=== PATIENT | female | born 1995 | race Caucasian/White ===

== ENCOUNTER 2024-08-29 15:45 | Inpatient (IN) | payer OTHER ==
[2024-08-29 16:15] LABS: Glucose,Whole Blood 118 mg/dL (70-110)
[2024-08-29] MEDS ORDERED: NALBUPHINE 10 MG/ML (10 ML MDV) IV PRN (16:59)
[2024-08-29] MEDS ORDERED: CARBOPROST TROMETHAMINE 250 MCG/ML 1 ML AMP IM PRN (17:00)
[2024-08-29] MEDS ORDERED: miSOPROStoL 200 MCG TAB RECTAL PRN (17:00)
[2024-08-29] MEDS ORDERED: METHYLERGONOVINE 0.2 MG/ML 1 ML AMP IM PRN (17:00)
[2024-08-29] MEDS ORDERED: miSOPROStoL 200 MCG TAB PO PRN (17:00)
[2024-08-29] MEDS ORDERED: LIDOCAINE 0.5% (PF) 5 MG/ML (50 ML SDV) SQ PRN (17:00)
[2024-08-29] MEDS ORDERED: OXYTOCIN 10 UNIT/ML 1 ML VIAL IM PRN (17:00)
[2024-08-29] MEDS ORDERED: TERBUTALINE 1 MG/ML VIAL SQ PRN (17:00)
[2024-08-29] MEDS ORDERED: OXYTOCIN 30 UNITS/500 ML NS 30 UNIT in SALINE 1 500ML.BAG IV SCH (17:00)
[2024-08-29] MEDS ORDERED: TRANEXAMIC 1,000 MG/100ML-NACL 1,000 MG in EMPTY BAG 1 BAG IV PRN (17:00)
--- NOTE | 2024-08-29 17:09 | P.HPOB ---
History of Present Illness H&P Date: 08/29/24 Chief Complaint: IUP at 39 weeks, GDM A1 29-year-old 1 para 0 at 39 weeks of that presents for induction of labor secondary to gestational diabetes, diet-controlled. Patient has been receiving routine care which has been complicated by diagnosis of gestational diabetes which has been well-controlled with diet alone. Patient notes good movement. She notes an occasional contraction. She denies vaginal bleeding or loss of fluid US done at 35 weeks revealing an estimated weight of 5 pounds 13 ounces, 44th percentile. On blood work this patient has a blood type of A+, rubella status immune, RPR is nonreactive, hepatitis B surface engine negative, HIV negative, hepatitis C nonreactive, she did receive her Tdap on 07/14, grew beta strep culture negative on 08/10. Review of Systems Constitutional: Denies chills, Denies fatigue, Denies fever Ears, nose, mouth and throat: Denies headache Cardiovascular: Reports leg edema Respiratory: Denies dyspnea Gastrointestinal: Denies nausea, Denies vomiting Genitourinary: Reports Past Medical History Past Medical History: No Reported History History of Any Multi-Drug Resistant Organisms: None Reported Additional Past Surgical History / Comment(s): per pt, "Exploritory surg in 2022 r/t endometriosis". Past Anesthesia/Blood Transfusion Reactions: Postoperative Nausea & Vomiting (PONV) Past Psychological History: Anxiety, Depression Smoking Status: Never smoker Past Alcohol Use History: None Reported Past Drug Use History: None Reported - Past Family History Mother Family Medical History: Diabetes Mellitus Father Family Medical History: Diabetes Mellitus Medications and Allergies Home Medications Medication Instructions Recorded Confirmed Type Aspirin [Adult Low Dose Aspirin EC] 81 mg PO DAILY 08/29/24 08/29/24 History Escitalopram [Lexapro] 20 mg PO DAILY 08/29/24 08/29/24 History Pnv 11/Iron Fum/Folic Acid/Om3 1 each PO DAILY 08/29/24 08/29/24 History [Wesnate Dha Softgel] Allergies Allergy/AdvReac Type Severity Reaction Status Date / Time shrimp Allergy Rash/Hives Verified 08/29/24 16:22 Sulfa (Sulfonamide AdvReac Rash/Hives Verified 08/29/24 16:22 Antibiotics) Exam Osteopathic Statement: *. No significant issues noted on an osteopathic structural exam other than those noted in the History and Physical/Consult. Vital Signs Temp Pulse Resp BP Pulse Ox 08/29/24 16:21 95.6 F L 98 18 128/65 97 Intake and Output 08/29/24 08/29/24 08/29/24 06:59 14:59 22:59 Other: Weight 117.48 kg Targeted physical exam is performed this date General Is well-nourished well- developed female in no acute distress, breathing is noted to be nonlabored, heart has a regular and rhythm, abdomen is gravid, heart tones noted category 1 and she is not flores, Dilapan was attempted be placed but the head was noted to be well applied and unable to be placed appropriately therefore procedure was abandoned. Cervidil will be placed as her cervix is noted to be 2/50/-2 station vertex presentation Results Abnormal Lab Results - Last 24 Hours (Table) 08/29/24 Range/Units 16:14 POC Glucose (mg/dL) 118 H (70-110) mg/dL Assessment and Plan (1) 39 weeks gestation of Current Visit: Yes Status: Acute Code(s): Z3A.39 - 39 WEEKS GESTATION OF SNOMED Code(s): 44763164 (2) GDM, class A1 Current Visit: Yes Status: Acute Code(s): O24.410 - GESTATIONAL DIABETES MELLITUS IN , DIET CONTROLLED SNOMED Code(s): 27600435 Plan: 29-year-old G1, P0 at 39 weeks that presents for induction of labor secondary to gestational diabetes, diet-controlled. Patient is admitted to labor and delivery and Cervidil induction of labor has begun. Options for analgesia are discussed including Nubain, nitrous, epidural. Patient will consider.
[2024-08-29] MEDS: DINOPROSTONE 10 MG INSERT.ER VAGINAL ONE (17:16)
[2024-08-29] MEDS: LACTATED RINGERS 1,000 ML IV SCH (17:21)
[2024-08-29 17:37] LABS: Basophils % (A) 0 %; Eosinophils # (A) 0.1 k/uL (0-0.7); Eosinophils % (A) 1 %; HGB 11.6 gm/dL (11.4-16.0); Lymphocytes # (A) 1.8 k/uL (1.0-4.8); Lymphocytes % (A) 17 %; MCH 26.1 pg (25.0-35.0); MCHC 33.2 g/dL (31.0-37.0); MCV 78.6 fL (80.0-100.0); Monocytes # (A) 0.6 k/uL (0-1.0); Monocytes % (A) 5 %; Neutrophils # (A) 8.5 k/uL (1.3-7.7); Neutrophils % (A) 77 %; Platelet Count 482 k/uL (150-450); RBC 4.46 m/uL (3.80-5.40); RDW 14.5 % (11.5-15.5); WBC 11.2 k/uL (3.8-10.6)
[2024-08-30] MEDS: OXYTOCIN 30 UNITS/500 ML NS 30 UNIT in SALINE 1 500ML.BAG IV SCH (06:01)
[2024-08-30] MEDS: ESCITALOPRAM 20 MG TAB PO SCH (13:55)
[2024-08-30] MEDS: PRENATAL VIT-IRON-FOLIC ACID 1 EACH TABLET PO SCH (13:56)
[2024-08-31] MEDS: AMPICILLIN 2,000 MG in SODIUM CHLORIDE 0.9% 100 ML IVPB ONE (00:09)
[2024-08-31] MEDS ORDERED: CARBOPROST TROMETHAMINE 250 MCG/ML 1 ML AMP IM PRN (02:26)
[2024-08-31] MEDS ORDERED: METHYLERGONOVINE 0.2 MG/ML 1 ML AMP IM PRN (02:26)
[2024-08-31] MEDS ORDERED: OXYTOCIN 10 UNIT/ML 1 ML VIAL IM PRN (02:26)
[2024-08-31] MEDS ORDERED: TRANEXAMIC 1,000 MG/100ML-NACL 1,000 MG in EMPTY BAG 1 BAG IV PRN (02:26)
[2024-08-31] MEDS: CITRIC ACID-SODIUM CITRATE 15 ML CUP PO ONE (02:48)
[2024-08-31] MEDS ORDERED: METOCLOPRAMIDE 5 MG/ML 2 ML VIAL IVP PRN (04:11)
[2024-08-31] MEDS ORDERED: diphenhydrAMINE 25 MG CAP PO PRN (04:11)
[2024-08-31] MEDS ORDERED: ZOLPIDEM 5 MG TAB PO PRN (04:11)
[2024-08-31] MEDS ORDERED: SIMETHICONE 80 MG CHEWABLE PO PRN (04:11)
[2024-08-31] MEDS ORDERED: NALOXONE 0.4 MG/ML 1 ML VIAL IV PRN (04:11)
[2024-08-31] MEDS ORDERED: ONDANSETRON 4 MG/2 ML VIAL IVP PRN (04:11)
[2024-08-31] MEDS ORDERED: diphenhydrAMINE 50 MG/ML 1 ML VIAL IVP PRN ×2 (04:11)
[2024-08-31] MEDS ORDERED: diphenhydrAMINE 50 MG CAP PO PRN (04:11)
[2024-08-31] MEDS: ACETAMINOPHEN IV (For NPO) 1,000 MG in EMPTY BAG 1 BAG IVPB ONE (04:20)
[2024-08-31] MEDS: AMPICILLIN 1,000 MG in SODIUM CHLORIDE 0.9% 50 ML IVPB SCH (04:23)
[2024-08-31] MEDS: IBUPROFEN 800 MG TAB PO SCH (06:56)
[2024-08-31] MEDS: LACTATED RINGERS 1,000 ML IV SCH (06:56)
[2024-08-31] MEDS: IBUPROFEN IV 800 MG in SODIUM CHLORIDE 0.9% 250 ML IV ONE (08:33)
[2024-08-31] MEDS: SENNOSIDES-DOCUSATE SODIUM 1 EACH TAB PO SCH (08:51)
--- NOTE | 2024-08-31 08:52 | P.OP ---
Date of Procedure: 08/31/24 Preoperative Diagnosis: IUP at 39+ weeks, arrest of dilation, gestational diabetes A1 Postoperative Diagnosis: Same Procedure(s) Performed: MRI low-transverse section Anesthesia: epidural Surgeon: Callie Vincent [employer] Supervisor #1: Ismael Vance Estimated Blood Loss (ml): 635 IV fluids (ml): 1,500 Urine output (ml): 100 Pathology: none sent Condition: stable Disposition: observation Indications for Procedure: arrest of dilation for >8 hours Operative Findings: viable male infant delivered at 312, weight 7-11, apgars Description of Procedure: The patient was prepped and draped after epidural anesthesia was found to be adequate. A Pfannenstiel incision was made and extended of the abdominal cavity without difficulty. The bladder peritoneum was elevated and incised and reflected distally. A 2 cm incision was made in the transverse plane of the lower uterine segment to enter the uterus at which time clear fluid was noted. The incision was extended in both directions using the bandage scissors. The head was encountered within the field and delivered up and through the incision where the nose and mouth were thoroughly suctioned. Remainder of the was delivered onto the surgical field where the cord was doubly clamped, cut, and the infant was passed for resuscitative measures with weight and Apgars as noted above. The placenta was delivered manually, intact, and was grossly normal with a grossly normal three-vessel cord. The uterus was exteriorized and the interior cavity of the uterus swept of any remaining placental and membranous fragments with a laparotomy sponge. The margins of the incision were grasped with Lucas clamps and the incision closed in 2 layers. First layer was a running locking layer of 0 Vicryl from margin to margin followed by a second layer of imbricating 0 Vicryl from margin to margin. Any small points of bleeding were then made hemostatic with the Bovie. Once hemostasis was achieved, the posterior cul-de-sac was suctioned with a guard and the uterine and ovarian findings are as noted above. The uterus was replaced within the abdominal cavity and the gutters swept of any remaining blood fluid or clot. The incision was again reexamined and hemostasis was noted to be excellent. Any small point of bleeding were made hemostatic with the Bovie. Once hemostasis w as achieved the parietal peritoneum was loosely reapproximated. The layer of muscles were examined and made hemostatic with the Bovie. Attention was then turned to the fascia which was closed with 2 running stitches of 0 Vicryl proceeding from the lateral margins to the midpoint. The subcutaneous tissues were irrigated, made hemostatic with the Bovie, and reapproximated with a running stitch of 30 plain catgut. The skin was reapproximated with 4-0 Vicryl. Estimated blood loss for the case was approximately 635 mL. All sponge instrument and needle counts are correct. There were no complications. The patient tolerated the procedure well and proceeded to the recovery room in stable condition. Both mother and are resting comfortably in recovery.
[2024-08-31] MEDS: ACETAMINOPHEN TAB 500 MG TAB PO SCH (12:15)
--- NOTE | 2024-08-31 14:41 | P.PNOBGPC ---
Subjective - Subjective Principal diagnosis: Postop day 0, primary Interval history: Patient is doing well overall, awaiting spontaneous void, catheter removed around noon. Ambulating without difficulty. Tolerating regular diet without nausea or vomiting. States pain is well-controlled. Patient reports: Reports appetite normal, Reports pain well controlled, Reports ambulating normally [place]: doing well Objective - Vital Signs Latest vital signs: Vital Signs Temp Pulse Resp BP Pulse Ox 08/31/24 12:24 99.4 F 73 16 100/68 96 08/31/24 08:05 97.7 F 80 16 107/71 96 08/31/24 05:46 96.8 F L 73 16 94/51 08/31/24 05:31 96.6 F L 78 16 100/51 08/31/24 05:16 84 16 107/51 96 08/31/24 05:01 96.8 F L 89 16 99/52 94 L 08/31/24 04:46 97.5 F L 83 16 97/49 97 08/31/24 04:31 97.8 F 94 16 101/57 98 08/31/24 04:16 97.1 F L 97 16 115/71 99 08/31/24 04:01 96.9 F L 99 16 105/56 100 08/31/24 03:46 97.2 F L 89 16 111/55 100 Intake and Output 08/30/24 08/31/24 08/31/24 22:59 06:59 14:59 Intake Total 210.633 Output Total 1042 700 Balance -831.367 -700 Intake: Intake, IV Titration 210.633 Amount Oxytocin 30 Units/500 ml 210.633 Ns 30 unit In Saline 1 500ml.bag @ Per Protocol IV .Q0M [facility] Rx#:[id number] Output: Urine 200 700 Uretheral (Montes) 700 Output, Estimated Blood 635 Loss Amount Output, Quantitative 207 Blood Loss Other: Voiding Method Indwelling Catheter - Exam Extremities: Present: normal, edema Abdomen: Present: normal appearance, soft Incision: Present: normal, dry, intact Uterus: Present: normal, firm Assessment and Plan (1) 39 weeks gestation of Current Visit: Yes Status: Acute Code(s): Z3A.39 - 39 WEEKS GESTATION OF SNOMED Code(s): 52678108 (2) GDM, class A1 Current Visit: Yes Status: Acute Code(s): O24.410 - GESTATIONAL DIABETES MELLITUS IN , DIET CONTROLLED SNOMED Code(s): 58013114 (3) Arrest of dilation, delivered, current hospitalization Current Visit: Yes Status: Acute Code(s): O62.1 - SECONDARY UTERINE INERTIA SNOMED Code(s): 49571795 (4) Status post section Current Visit: Yes Status: Acute Code(s): Z98.891 - HISTORY OF UTERINE SCAR FROM PREVIOUS SURGERY SNOMED Code(s): 895729297 Plan: Patient is doing well postoperatively. Awaiting spontaneous void. Continue routine postoperative care.
[2024-08-31 15:17] VITALS: RESP 16
[2024-09-01 05:42] LABS: Basophils % (A) 0 %; Eosinophils # (A) 0.2 k/uL (0-0.7); Eosinophils % (A) 2 %; Hypochromasia Slight; Lymphocytes # (A) 2.8 k/uL (1.0-4.8); Lymphocytes % (A) 25 %; MCH 26.5 pg (25.0-35.0); MCHC 33.3 g/dL (31.0-37.0); MCV 79.6 fL (80.0-100.0); Mean Platelet Volume 7.3; Monocytes # (A) 0.6 k/uL (0-1.0); Monocytes % (A) 5 %; Neutrophils # (A) 7.3 k/uL (1.3-7.7); Neutrophils % (A) 66 %; Platelet Count 343 k/uL (150-450); RBC 3.26 m/uL (3.80-5.40); RDW 14.6 % (11.5-15.5); WBC 11.2 k/uL (3.8-10.6)
[2024-09-01 05:56] LABS: HGB 8.7 gm/dL (11.4-16.0)
--- NOTE | 2024-09-01 07:25 | P.PN ---
Progress Note - Text Progress Note Date: 09/01/24 (675) Anesthesia Postop day 1 Subjective: Status Post section with Duramorph. Patient seen and examined. Doing well without complaint. VAS 0. No nausea vomiting or pruritus.. Denies fever. Gross lower extremity strength intact. Without apparent anesthetic complications. Objective: Vital signs reviewed Heart: Regular Rate Lungs: Good chest excursion Abdomen: Appears nondistended Assessment: Status post section with Duramorph postop day 1 Plan: 1. Continue current care with your medical management. Anticipated need for extra pain pill as Duramorph action has ended. 2. This note was dictated using [email or web address] software. Please be advised there is a potential for misspellings or errors in registered nurse.
--- NOTE | 2024-09-01 10:15 | P.DS ---
Providers Date of admission: 08/29/24 15:45 Expected date of discharge: 09/01/24 Attending physician: Callie Vincent Primary care physician: [facility] - Discharge Diagnosis(es) (1) 39 weeks gestation of Current Visit: Yes Status: Acute (2) GDM, class A1 Current Visit: Yes Status: Acute (3) Arrest of dilation, delivered, current hospitalization Current Visit: Yes Status: Acute (4) Status post section Current Visit: Yes Status: Acute Hospital Course: This is a 29-year-old 1 now para 1 that presented to labor and delivery on 08/29 for Cervidil induction of labor. Patient been receiving routine care with myself which had been complicated by diagnosis of gestational diabetes that have been well-controlled with diet alone. Patient in addition has a history of factor V Leiden no personal history of blood clot and has been taking baby aspirin daily. Cervidil was placed without difficulty that evening. Patient did well through the evening with minimal cramping. Patient was noted to be 2+ centimeters in the morning amniotomy was performed and clear fluid was obtained. Patient made progress through the day slowly stalling at 4 to 5 cm in the transportation officer hours of 08/31. Patient was counseled on lack of progress and lack of descent of the head. Patient stated understanding and wished to proceed with primary low-transverse section. Patient was taken back to the operating suite where was performed without difficulty. Patient delivered a viable female infant at 313, weight of 7 pounds 11 ounces, Apgars of 7 and 8 at 1 and 5 minutes respectively. Patient has done well postoperatively. Patient is ambulating and voiding without difficulty. She is tolerating a regular diet without nausea or vomiting. States her pain is well-controlled. She denies concerns. She would like discharge home later today. Patient Condition at Discharge: Good Plan - Discharge Summary New Discharge Prescriptions: No Action Escitalopram [Lexapro] 20 mg PO DAILY Pnv 11/Iron Fum/Folic Acid/Om3 [Wesnate Dha Softgel] 1 each PO DAILY Aspirin [Adult Low Dose Aspirin EC] 81 mg PO DAILY Discharge Medication List Aspirin [Adult Low Dose Aspirin EC] 81 mg PO DAILY 08/29/24 [History] Escitalopram [Lexapro] 20 mg PO DAILY 08/29/24 [History] Pnv 11/Iron Fum/Folic Acid/Om3 [Wesnate Dha Softgel] 1 each PO DAILY 08/29/24 [History] Follow up Appointment(s)/Referral(s): Callie Vincent DO [Doctor of Osteopathic Medicine] - 10/11/24 2:15 pm (Post C/S Appointment 09-12-2024 at 10:30am) Patient Instructions/Handouts: (DC), (GEN) Activity/Diet/Wound Care/Special Instructions: No tub baths or intercourse until 6 weeks postoperatively. Steri-Strips may fall off in 7 to 10 days postoperatively, if they remain at her 2-week postop check I will remove them at that time. [id number] ibuprofen 600 mg or 3 tablets every 6 hours as needed for pain. No driving until her 2-week postop check. Discharge Disposition: HOME SELF-CARE
[2024-09-01 16:11] VITALS: BP 115/73; PULSE 72; TEMP 98
== END 2024-09-01 17:35 | disposition home or self-care (01) | DRG 787 ==
LOC: 4FBP 15:45
PROVIDERS: ADMIT Obstetrics & Gynecology Obstetrics; ATTEND Obstetrics & Gynecology Obstetrics
PROC: 10D00Z1 Extraction of Products of Conception, Low, Open Approach (ICD-10-PCS; principal; 2024-08-29)
PROC: 10907ZC Drainage of Amniotic Fluid, Therapeutic from Products of Conception, Via Natural or Artificial Opening (ICD-10-PCS; 2024-08-29)
PROC: 3E0P7VZ Introduction of Hormone into Female Reproductive, Via Natural or Artificial Opening (ICD-10-PCS; 2024-08-29)
DX: O24.420 Gestational diabetes mellitus in childbirth, diet controlled (principal); D68.51 Activated protein C resistance; O99.12 Other diseases of the blood and blood-forming organs and certain disorders involving the immune mechanism complicating childbirth; Z3A.39 39 weeks gestation of pregnancy; Z37.0 Single live birth; F32.A Depression, unspecified; F41.9 Anxiety disorder, unspecified; O62.0 Primary inadequate contractions; O99.344 Other mental disorders complicating childbirth; Z79.82 Long term (current) use of aspirin; Z79.899 Other long term (current) drug therapy; Z88.2 Allergy status to sulfonamides; Z91.013 Allergy to seafood
CPT/HCPCS: 85025; 86850; 86900; 86901

== ENCOUNTER 2024-12-22 03:37 | Emergency (ER) | payer OTHER ==
--- NOTE | 2024-12-22 04:44 | ED ---
General Adult HPI - General Chief complaint: Upper Respiratory Infection Stated complaint: BIJAL, cough Time Seen by Provider: 12/22/24 04:16 Source: patient Mode of arrival: ambulatory Limitations: no limitations - History of Present Illness Initial comments: Patient is a pleasant 29 y/o female PMH asthma, approx 3 mon post presenting today for cough and shortness of breath. Pt's son was diagnosed Thursday, about 4 days plane captain w/ influenza, which is when pt's symptoms started as well. Thursday she was diagnosed with influenza and prescribed tamiflu which she began taking last night. States since Thursday she has had progressively worsening dry cough and shortness of breath. Endorses fevers x 2-3 days for which she has been taking tylenol. Endorses chest tightness/ discomfort w/ deep breathing. Denies LE swelling, hemoptysis, recent surgeries, travel or hospitalizations. No hx prior PE/DVT or ACS. She is a nonsmoker. Does have a hx of Factor V leidem mutation. - Related Data Home Medications Medication Instructions Recorded Confirmed Aspirin [Adult Low Dose Aspirin EC] 81 mg PO DAILY 08/29/24 08/29/24 Escitalopram [Lexapro] 20 mg PO DAILY 08/29/24 08/29/24 Pnv 11/Iron Fum/Folic Acid/Om3 1 each PO DAILY 08/29/24 08/29/24 [Wesnate Dha Softgel] Previous Rx's Medication Instructions Recorded Amoxicillin 1,000 mg PO Q8H 5 Days #30 capsule 12/22/24 Albuterol Nebulized [Ventolin 2.5 mg INHALATION QID PRN #75 ml 12/24/24 Nebulized] predniSONE [Deltasone] 20 mg PO BID #10 tab 12/24/24 Allergies Allergy/AdvReac Type Severity Reaction Status Date / Time shrimp Allergy Rash/Hives Verified 12/22/24 03:49 Sulfa (Sulfonamide AdvReac Rash/Hives Verified 12/22/24 03:49 Antibiotics) Review of Systems ROS Statement: Those systems with pertinent positive or pertinent negative responses have been documented in the HPI. ROS Other: All systems not noted in ROS Statement are negative. Past Medical History Past Medical History: No Reported History History of Any Multi-Drug Resistant Organisms: None Reported Additional Past Surgical History / Comment(s): per pt, "Exploritory surg in 2022 r/t endometriosis". Past Anesthesia/Blood Transfusion Reactions: Postoperative Nausea & Vomiting (PONV) Past Psychological History: Anxiety, Depression Smoking Status: Never smoker Past Alcohol Use History: None Reported Past Drug Use History: None Reported - Past Family History Mother Family Medical History: Diabetes Mellitus Father Family Medical History: Diabetes Mellitus General Exam - General Exam Comments Initial Comments: PE: CONSTITUTIONAL: No apparent distress, well appearing SKIN: Warm, dry, no jaundice, hives or petechiae EYES: Pupils are equally round, extraocular movements intact without nystagmus, clear conjunctiva, non-icteric sclera HENT: Normocephalic, atraumatic, moist mucus membranes, oropharynx clear without exudates NECK: , Full range of motion, normal appearance PULMONARY: Clear to auscultation without wheezes, rhonchi, or rales, normal excursion, no accessory muscle use and no stridor, frequent cough during deep breathing CARDIOVASCULAR: Regular rate, rhythm, normal S1 and S2. No appreciated murmurs, rubs or gallops. Strong radial pulses with intact distal perfusion. No lower extremity edema GASTROINTESTINAL: Soft, active bowel sounds throughout, non-tender, non- distended, no palpable masses, no rebound or guarding. No hepatosplenomegaly GENITOURINARY: MUSCULOSKELETAL: Extremities have no gross deformity, no edema, redness, or swelling. No calf swelling NEUROLOGIC:_a/o x 3, GCS 15, normal mentation and speech. Moves all extremities x 4 without motor or sensory deficit PSYCHIATRIC:_normal mood and affect, thought process is clear and linear Limitations: no limitations Course Vital Signs 12/22/24 12/22/24 12/22/24 03:44 04:29 05:49 Temperature 100 F H Pulse Rate 105 H 100 96 Respiratory 20 20 18 Rate Blood Pressure 119/77 114/76 O2 Sat by Pulse 93 L 96 Oximetry 12/22/24 12/22/24 12/22/24 05:55 06:38 08:43 Temperature 98.4 F 98.4 F Pulse Rate 95 73 76 Respiratory 18 18 20 Rate Blood Pressure 121/77 105/69 O2 Sat by Pulse 94 L 96 Oximetry EKG Findings - EKG Comments: EKG Findings:: Sinus rhythm, rate 87 bpm VT interval 152 ms QT/QTc 331/375 ms, normal axis, T wave inversion lead V2, no ST elevations or depressions, no arrhythmia, no delta wave or Brugada pattern Medical Decision Making - Medical Decision Making Was pt. sent in by a medical professional or institution (, [facility], METER SETTER, urgent care, hospital, or snf...) When possible be specific @ -No Did you speak to anyone other than the patient for history (EMS, parent, family, police, friend...)? What history was obtained from this source @ -No Did you review nursing and triage notes (agree or disagree)? Why? @ -I reviewed nursing and triage notes Were old charts reviewed (outside hosp., previous admission, EMS record, old EKG, old radiological studies, urgent care reports/EKG's, snf records)? Report findings @ -Medical records reviewed- Differential Diagnosis (chest pain, altered mental status, abdominal pain women, abdominal pain men, vaginal bleeding, weakness, fever, dyspnea, syncope, headache, dizziness, GI bleed, back pain, seizure, CVA, palpatations, mental health, musculoskeletal)? @Differential Dyspnea: Coronary syndrome, arrhythmia, tamponade, asthma, COPD, pulmonary embolism, pneumonia, pneumothorax, pulmonary effusion, anaphylaxis, diabetic ketoacidosis, flailed chest, pulmonary contusion, diaphragmatic rupture, anemia, neuromuscular, this is not meant to be an all-inclusive list. EKG interpreted by me (3pts min.). @ -As above X-rays interpreted by me (1pt min.). @ -None done CT interpreted by me (1pt min.). @I personally reviewed CTA of the chest, I see no evidence of pulmonary embolism, does appear to have small infiltrate in the left lower lung concerning for pneumonia,Impression per radiologist interpretation did note suboptimal study without PE due to dense contrast in the SVC, tiny bilateral pleural effusions and areas of groundglass opacity suggesting fluid overload state, additional areas of acute infiltrate in the bilateral lower lungs cannot be excluded, correlate clinically, patient has no lower extremity edema, BNP is not elevated, I suspect these findings are more likely secondary to patient's influenza infection with potential superimposed pneumonia. U/S interpreted by me (1pt. min.). @ -None done What testing was considered but not performed or refused? (CT, X-rays, U/S, labs)? Why? @ -None What meds were considered but not given or refused? Why? @ -None Did you discuss the management of the patient with other professionals (professionals i.e. , PA, METER SETTER, lab, RT, psych nurse, elementary school social worker, meat packer, teacher, chief lending officer, telephonic nurse case manager)? Give summary @ -No Was smoking cessation discussed for >3mins.? @ -No Was critical care preformed (if so, how long)? @ -No Were there social determinants of health that impacted care today? How? (Homelessness, low income, unemployed, alcoholism, drug addiction, transportation, low edu. Level, literacy, decrease access to med. care, custodial, rehab)? @ -No Was there de-escalation of care discussed even if they declined (Discuss DNR or withdrawal of care, Hospice)? @ -No What co-morbidities impacted this encounter? (DM, HTN, Smoking, COPD, CAD, Cancer, CVA, ARF, Chemo, Hep., AIDS, mental health diagnosis, sleep apnea, morbid obesity)? @Childhood asthma, obesity Was patient admitted / discharged? Hospital course, mention meds given and route, prescriptions, significant lab abnormalities, going to OR and other pertinent info. @Discharged-patient is a 29-year-old female presenting today for shortness of breath 4 days after being diagnosed with influenza. , Temp on arrival 100 degrees, pulse 105 bpm respiratory rate 20 pulse ox 93% blood pressure 119/77. On my assessment patient is well-appearing in no acute distress. No increased work of breathing. Her lungs are actually clear to auscultation bilaterally, she has no lower extremity edema. Discussed with patient plan for labs, EKG, imaging of the chest will be decided upon once D-dimer results, given history childhood asthma will trial a DuoNeb treatment, Tylenol and Toradol for pain control and IV fluids. Patient agreeable plan of care. Labs significant for no leukocytosis, D-dimer 1.24 CTA chest ordered, slight elevation in liver enzymes AST/ALT 37/46, troponin undetectable BNP 21. At the patient the findings and plan for CTA of the chest, she does endorse some improv ement of symptoms after Toradol Tylenol and DuoNeb. CTA chest appears to be consistent with potential small left lower lobe pneumonia versus viral pneumonia on my review. Patient is actively breast- feeding, so doxycycline and azithromycin were considered, patient will be discharged home with amoxicillin. Updated patient to findings and plan of care. She is comfortable and agreeable plan. She was discharged in stable condition. In my medical judgment there is currently no evidence of an immediate life- threatening or surgical condition. Discharge is therefore indicated at this time. Discharge treatment instructions, follow up instructions, and appropriate emergency department return precautions were discussed with the patient and/or medical decision maker. Patient and/or medical decision maker expressed understanding of and agreed with the treatment plan, follow up instructions, and emergency department return precaution. All patient's and/or medical decision maker's questions were answered. The patient was instructed to return to the ED for any changes in symptoms, persistent symptoms, inability to obtain proper follow-up or for any further concerns. Patient received verbal and written instructions for this condition. Undiagnosed new problem with uncertain prognosis? @ -No Drug Therapy requiring intensive monitoring for toxicity (Heparin, Nitro, Insulin, Cardizem)? @ -No Were any procedures done? @ -No Diagnosis/symptom? @ -Pneumonia Acute, or Chronic, or Acute on Chronic? @Acute Uncomplicated (without systemic symptoms) or Complicated (systemic symptoms)? Complicated Side effects of treatment? @ -No Exacerbation, Progression, or Severe Exacerbation? @ -No Poses a threat to life or bodily function? How? (Chest pain, USA, CT, pneumonia, PE, COPD, DKA, ARF, appy, cholecystitis, CVA, Diverticulitis, Homicidal, Suicidal, threat to staff... and all critical care pts) @Potentially if left untreated, however life-threatening at this time, no - Lab Data Result diagrams: 12/22/24 05:11 12/22/24 05:11 Lab Results 12/22/24 12/22/24 12/22/24 Range/Units 05:11 05:11 05:11 WBC 8.9 (3.8-10.6) k/uL RBC 5.13 (3.80-5.40) m/uL Hgb 12.7 (11.4-16.0) gm/dL Hct 40.3 (34.0-46.0) % MCV 78.7 L (80.0-100.0) fL MCH 24.9 L (25.0-35.0) pg MCHC 31.6 (31.0-37.0) g/dL RDW 15.6 H (11.5-15.5) % Plt Count 364 (150-450) k/uL MPV 7.4 Neutrophils % 72 % Lymphocytes % 22 % Monocytes % 4 % Eosinophils % 1 % Basophils % 0 % Neutrophils # 6.4 (1.3-7.7) k/uL Lymphocytes # 1.9 (1.0-4.8) k/uL Monocytes # 0.4 (0-1.0) k/uL Eosinophils # 0.1 (0-0.7) k/uL Basophils # 0.0 (0-0.2) k/uL Microcytosis Slight PT 10.7 (10.0-12.5) sec INR 1.0 (<1.2) APTT 26.7 (22.0-30.0) sec D-Dimer 1.24 H (<0.60) mg/L FEU Sodium 138 (137-145) mmol/L Potassium 4.2 (3.5-5.1) mmol/L Chloride 101 (98-107) mmol/L Carbon Dioxide 26 (22-30) mmol/L Anion Gap 11 mmol/L BUN 17 (7-17) mg/dL Creatinine 0.78 (0.52-1.04) mg/dL Est GFR (CKD-EPI)AfAm >90 (>60 ml/min/1.73 sqM) Est GFR (CKD-EPI)NonAf >90 (>60 ml/min/1.73 sqM) Glucose 109 H (74-99) mg/dL Calcium 9.6 (8.4-10.2) mg/dL Total Bilirubin 0.3 (0.2-1.3) mg/dL AST 37 H (14-36) U/L ALT 46 H (4-34) U/L Alkaline Phosphatase 61 (38-126) U/L Troponin I (0.000-0.034) ng/mL NT-Pro-B Natriuret Pep 21 pg/mL Total Protein 7.2 (6.3-8.2) g/dL Albumin 4.1 (3.5-5.0) g/dL HCG, Qual 12/22/24 12/22/24 Range/Units 05:11 05:11 WBC (3.8-10.6) k/uL RBC (3.80-5.40) m/uL Hgb (11.4-16.0) gm/dL Hct (34.0-46.0) % MCV (80.0-100.0) fL MCH (25.0-35.0) pg MCHC (31.0-37.0) g/dL RDW (11.5-15.5) % Plt Count (150-450) k/uL MPV Neutrophils % % Lymphocytes % % Monocytes % % Eosinophils % % Basophils % % Neutrophils # (1.3-7.7) k/uL Lymphocytes # (1.0-4.8) k/uL Monocytes # (0-1.0) k/uL Eosinophils # (0-0.7) k/uL Basophils # (0-0.2) k/uL Microcytosis PT (10.0-12.5) sec INR (<1.2) APTT (22.0-30.0) sec D-Dimer (<0.60) mg/L FEU Sodium (137-145) mmol/L Potassium (3.5-5.1) mmol/L Chloride (98-107) mmol/L Carbon Dioxide (22-30) mmol/L Anion Gap mmol/L BUN (7-17) mg/dL Creatinine (0.52-1.04) mg/dL Est GFR (CKD-EPI)AfAm (>60 ml/min/1.73 sqM) Est GFR (CKD-EPI)NonAf (>60 ml/min/1.73 sqM) Glucose (74-99) mg/dL Calcium (8.4-10.2) mg/dL Total Bilirubin (0.2-1.3) mg/dL AST (14-36) U/L ALT (4-34) U/L Alkaline Phosphatase (38-126) U/L Troponin I <0.012 (0.000-0.034) ng/mL NT-Pro-B Natriuret Pep pg/mL Total Protein (6.3-8.2) g/dL Albumin (3.5-5.0) g/dL HCG, Qual Not Detected Disposition Clinical Impression: Community acquired bacterial pneumonia Disposition: HOME SELF-CARE Condition: Stable Instructions (If sedation given, give patient instructions): Community Acquired Pneumonia (ED) Additional Instructions: Every disease is a spectrum and a small chance still exists that a serious condition could develop, for this reason, please monitor yourself closely for new, changing or worsening symptoms, symptoms that do not improve in 48 hours, coughing up blood, difficulty in breathing, swelling in your legs, new or worsening chest pain, chest pain that does not resolve in the next 48 hours, fever for greater than 7 days or that continues after the completion of your antibiotics, inability to tolerate/keep down fluids or your medications, inability to follow up with outpatient providers as instructed and should you experience these symptoms or should you have any further concerns for your wellbeing please return to the ED or call 911 immediately. PLEASE call your primary care physician as soon as possible to arrange / discuss plan for followup appointment. Appointment in the next 1-3 days is strongly encouraged if possible. PLEASE let us know here before you leave if there is anything further we can do to be of any assistance. Take care and feel Better! Prescriptions: Amoxicillin 1,000 mg PO Q8H 5 Days #30 capsule Is patient prescribed a controlled substance at d/c from ED?: No Referrals: Amilcar Felix DO [Primary Care Provider] - 1-2 days
[2024-12-22 05:35] LABS: Basophils % (A) 0 %; Eosinophils # (A) 0.1 k/uL (0-0.7); Eosinophils % (A) 1 %; HCT 40.3 % (34.0-46.0); HGB 12.7 gm/dL (11.4-16.0); Lymphocytes # (A) 1.9 k/uL (1.0-4.8); Lymphocytes % (A) 22 %; MCH 24.9 pg (25.0-35.0); MCHC 31.6 g/dL (31.0-37.0); MCV 78.7 fL (80.0-100.0); Mean Platelet Volume 7.4; Microcytosis Slight; Monocytes # (A) 0.4 k/uL (0-1.0); Monocytes % (A) 4 %; Neutrophils # (A) 6.4 k/uL (1.3-7.7); Neutrophils % (A) 72 %; Platelet Count 364 k/uL (150-450); RBC 5.13 m/uL (3.80-5.40); RDW 15.6 % (11.5-15.5); WBC 8.9 k/uL (3.8-10.6)
[2024-12-22] MEDS: SODIUM CHLORIDE 0.9% 1,000 ML IV ONE (05:37)
[2024-12-22] MEDS: KETOROLAC 15 MG/ML 1 ML VIAL IVP STA (05:37)
[2024-12-22] MEDS: ACETAMINOPHEN TAB 500 MG TAB PO STA (05:38)
[2024-12-22] MEDS: IPRATROPIUM-ALBUTEROL 3 ML NEB INHALATION STA (05:49)
[2024-12-22 06:01] LABS: Partial Thromboplastin Time 26.7 sec (22.0-30.0); Prothrombin Time 10.7 sec (10.0-12.5)
[2024-12-22 06:02] LABS: ALT 46 U/L (4-34); AST 37 U/L (14-36); African American GFR (CKD) >90 (>60 ml/min/1.73 sqM); Albumin 4.1 g/dL (3.5-5.0); Alkaline Phosphatase 61 U/L (38-126); Anion Gap 11 mmol/L; Blood Urea Nitrogen 17 mg/dL (7-17); Calcium 9.6 mg/dL (8.4-10.2); Carbon Dioxide 26 mmol/L (22-30); Chloride 101 mmol/L (98-107); Glucose 109 mg/dL (74-99); Non-African American GFR(CKD) >90 (>60 ml/min/1.73 sqM); Potassium 4.2 mmol/L (3.5-5.1); Sodium 138 mmol/L (137-145); Total Bilirubin 0.3 mg/dL (0.2-1.3); Total Protein 7.2 g/dL (6.3-8.2)
[2024-12-22 06:10] LABS: NT-Pro-B-Type Natriuretic Pept 21 pg/mL
[2024-12-22 06:42] VITALS: TEMP 98.4
--- NOTE | 2024-12-22 07:36 | CT ---
EXAMINATION TYPE: CT chest angio for PE DATE OF EXAM: 12/22/2024 COMPARISON: NONE CLINICAL INDICATION: Female, 29 years old with history of BIJAL, flu, hx factor V Leiden, BIJAL, Flu, Hx Factor V Leiden, TECHNIQUE: CTA scan of the thorax is performed with IV Contrast, patient injected with 100 ml of Isovue 370, pul monary embolism protocol. MIP Images are created on CT scanner and reviewed. CT DLP: 577.4 mGycm. Automated Exposure Control for Dose Reduction was Utilized. FINDINGS: LUNGS: Low lung volumes with multifocal areas of groundglass opacity seen bilaterally. There is mild linear scarring anteriorly in the upper to mid lungs. There is mild to moderate bibasilar linear scar ring and/or atelectasis. Some areas of organizing consolidation in the lower lungs are thought presen t. Tiny bilateral pleural effusions are seen. HEART: Size upper limits of normal. No significant coronary artery calcifications. MEDIASTINUM: Suboptimal study with most dense contrast in the SVC but no convincing CT evidence for a cute pulmonary embolism. Enhancement of the aorta without aneurysm or dissection. There are no great er than 1 cm hilar or mediastinal lymph nodes. No cardiomegaly or pericardial effusion is seen. OTHER: No additional significant abnormality is seen. IMPRESSION: 1. Suboptimal study without acute pulmonary embolism. 2. Low lung volumes. There are tiny bilateral pleural effusions and areas of groundglass opacity bila terally suggesting fluid overload state. Additional areas of acute infiltrate in the bilateral lower lungs cannot be excluded. Correlate clinically. [facility], , 12/22/2024 7:33 AM
[2024-12-22] MEDS: AMOXICILLIN 500 MG CAP PO STA (08:22)
[2024-12-22] MEDS: DOXYCYCLINE 100 MG TABLET PO ONE (08:22)
[2024-12-22 08:44] VITALS: BP 105/69; PULSE 76; RESP 20
== END 2024-12-22 08:44 | disposition home or self-care (01) ==
LOC: EC 03:37
DX: J15.9 Unspecified bacterial pneumonia (principal); E66.9 Obesity, unspecified; Z88.2 Allergy status to sulfonamides; Z91.013 Allergy to seafood; Z82.5 Family history of asthma and other chronic lower respiratory diseases; Z68.41 Body mass index [BMI] 40.0-44.9, adult
CPT/HCPCS: 36415; 94640; 93005; 85379; 83880; 80053; 84484; 85025; 85610; 85730; 84703; 71275; 99285; 96374; 96361; J1885; Q9967

== ENCOUNTER 2024-12-24 15:26 | Emergency (ER) | payer OTHER ==
--- NOTE | 2024-12-24 16:32 | ED ---
SOB HPI - General Source: patient, RN notes reviewed Mode of arrival: ambulatory Limitations: no limitations <Kim Lane - Last Filed: 12/24/24 16:31> - General Source: patient, RN notes reviewed Limitations: no limitations <Sammy Marroquin - Last Filed: 12/24/24 19:14> - General Chief Complaint: Shortness of Breath Stated Complaint: BIJAL Time Seen by Provider: 12/24/24 16:31 - History of Present Illness Initial Comments: Quick [id number] female presenting for shortness of breath. States she was diagnosed with pneumonia 2 days ago and reports increasing chest pain, productive green cough, and shortness of breath on exertion. States she is taking amoxicillin and Tamiflu. (Kim Lane) Patient is a 29-year-old female presenting to the emergency department present to the emergency department with concerns for cough and dyspnea. Symptoms have been present for close to a week. Patient has been diagnosed with influenza as well as infiltrate left lower lung. Patient was placed on Tamiflu as well as antibiotic. Patient has continued symptoms, a little bit worse last night. Patient did take nebulizer from a family member that did seem to help. Patient has history of asthma as a child. (Sammy Marroquin) - Related Data Home Medications Medication Instructions Recorded Confirmed Aspirin [Adult Low Dose Aspirin EC] 81 mg PO DAILY 08/29/24 08/29/24 Escitalopram [Lexapro] 20 mg PO DAILY 08/29/24 08/29/24 Pnv 11/Iron Fum/Folic Acid/Om3 1 each PO DAILY 08/29/24 08/29/24 [Wesnate Dha Softgel] Previous Rx's Medication Instructions Recorded Amoxicillin 1,000 mg PO Q8H 5 Days #30 capsule 12/22/24 Albuterol Nebulized [Ventolin 2.5 mg INHALATION QID PRN #75 ml 12/24/24 Nebulized] predniSONE [Deltasone] 20 mg PO BID #10 tab 12/24/24 Allergies Allergy/AdvReac Type Severity Reaction Status Date / Time shrimp Allergy Rash/Hives Verified 12/22/24 03:49 Sulfa (Sulfonamide AdvReac Rash/Hives Verified 12/22/24 03:49 Antibiotics) Review of Systems ROS Other: All systems not noted in ROS Statement are negative. <Kim Lane - Last Filed: 12/24/24 16:31> ROS Other: All systems not noted in ROS Statement are negative. Eyes: Denies: eye pain Respiratory: Reports: as per HPI, cough, dyspnea Cardiovascular: Denies: chest pain Endocrine: Reports: fatigue <Sammy Marroquin - Last Filed: 12/24/24 19:14> ROS Statement: Those systems with pertinent positive or pertinent negative responses have been documented in the HPI. Past Medical History Past Medical History: Pneumonia Additional Past Medical History / Comment(s): post pardum 4 months History of Any Multi-Drug Resistant Organisms: None Reported Additional Past Surgical History / Comment(s): per pt, "Exploritory surg in 2022 r/t endometriosis". Past Anesthesia/Blood Transfusion Reactions: Postoperative Nausea & Vomiting (PONV) Past Psychological History: Anxiety, Depression Smoking Status: Never smoker Past Alcohol Use History: None Reported Past Drug Use History: None Reported - Past Family History Mother Family Medical History: Diabetes Mellitus Father Family Medical History: Diabetes Mellitus <DomingoKim - Last Filed: 12/24/24 16:31> General Exam Limitations: no limitations <Kim Lane - Last Filed: 12/24/24 16:31> Limitations: no limitations General appearance: alert, in no apparent distress Head exam: Present: normocephalic Eye exam: Present: normal appearance Neck exam: Present: normal inspection Respiratory exam: Present: other (Breath sounds with rhonchi and occasional mild wheeze) Cardiovascular Exam: Present: regular rate, normal rhythm GI/Abdominal exam: Present: soft. Absent: tenderness Extremities exam: Present: normal inspection. Absent: pedal edema, calf tenderness Neurological exam: Present: alert Psychiatric exam: Present: normal affect, normal mood Skin exam: Present: normal color <Sammy Marroquin - Last Filed: 12/24/24 19:14> - General Exam Comments Initial Comments: Visual Physical Exam Vital signs reviewed General: Well-appearing, nontoxic, no acute distress. Head: Normocephalic, atraumatic Eyes: PERRLA, EOMI ENT: Airway patent Chest: Nonlabored breathing Skin: No visual rash, normal skin tone Neuro: Alert and oriented 3 Musculoskeletal: No gross abnormalities (Kim Lane) Course Vital Signs 12/24/24 16:03 Temperature 97.9 F Pulse Rate 84 Respiratory 16 Rate Blood Pressure 136/71 O2 Sat by Pulse 94 L Oximetry Medical Decision Making <DomingoKim - Last Filed: 12/24/24 16:31> - Lab Data Result diagrams: 12/24/24 17:15 12/24/24 17:15 <Sammy Marroquin - Last Filed: 12/24/24 19:14> - Medical Decision Making I completed the quick note portion of this chart signed Kim Lane PA-C (Kim Lane) Was pt. sent in by a medical professional or institution (, PA, TYPER, urgent care, hospital, or skilled nursing...) When possible be specific @ -No Did you speak to anyone other than the patient for history (EMS, parent, family, police, friend...)? What history was obtained from this source @ -No Did you review nursing and triage notes (agree or disagree)? Why? @ -I reviewed and agree with nursing and triage notes Were old charts reviewed (outside hosp., previous admission, EMS record, old EKG, old radiological studies, urgent care reports/EKG's, skilled nursing records)? Report findings @ -No old charts were reviewed Differential Diagnosis (chest pain, altered mental status, abdominal pain women, abdominal pain men, vaginal bleeding, weakness, fever, dyspnea, syncope, headache, dizziness, GI bleed, back pain, seizure, CVA, palpatations, mental health, musculoskeletal)? @ -Differential Dyspnea: Coronary syndrome, arrhythmia, tamponade, asthma, COPD, pulmonary embolism, pneumonia, pneumothorax, pulmonary effusion, anaphylaxis, diabetic ketoacidosis, flailed chest, pulmonary contusion, diaphragmatic rupture, anemia, neuromuscular, this is not meant to be an all-inclusive list. EKG interpreted by me (3pts min.). @ -As above X-rays interpreted by me (1pt min.). @ -Chest x-ray shows left lower lobe infiltrate CT interpreted by me (1pt min.). @ -None done U/S interpreted by me (1pt. min.). @ -None done What testing was considered but not performed or refused? (CT, X-rays, U/S, labs)? Why? @ -None What meds were considered but not given or refused? Why? @ -None Did you discuss the management of the patient with other professionals (professionals i.e. , KISHA, TYPER, lab, RT, psych nurse, rn social work, science liaison, teacher, ground nuclear weapons assembly officer, dependency case manager)? Give summary @ -No Was smoking cessation discussed for >3mins.? @ -No Was critical care preformed (if so, how long)? @ -No Were there social determinants of health that impacted care today? How? (Homelessness, low income, unemployed, alcoholism, drug addiction, transportation, low edu. Level, literacy, decrease access to med. care, group home, rehab)? @ -No Was there de-escalation of care discussed even if they declined (Discuss DNR or withdrawal of care, Hospice)? DNR status @ -No What co-morbidities impacted this encounter? (DM, HTN, Smoking, COPD, CAD, Cancer, CVA, ARF, Chemo, Hep., AIDS, mental health diagnosis, sleep apnea, morbid obesity)? @ -Remote history of asthma as a child Was patient admitted / discharged? Hospital course, mention meds given and route, prescriptions, significant lab abnormalities, going to OR and other pertinent info. @ -Patient presents with continued symptoms related to flu and chest infiltrate. Patient is already on Tamiflu and antibiotic. Patient and family are receptive to steroids. Patient and family would like to have prescription for nebulizer solution and steroids and be discharged. Patient advised to return if symptoms worsen. Patient and family are updated on results Undiagnosed new problem with uncertain prognosis? @ -No Drug Therapy requiring intensive monitoring for toxicity (Heparin, Nitro, Insulin, Cardizem)? @ -No Were any procedures done? @ -No Diagnosis/symptom? @ -Flu, pneumonia Acute, or Chronic, or Acute on Chronic? @ -Acute, acute Uncomplicated (without systemic symptoms) or Complicated (systemic symptoms)? @ -Default Side effects of treatment? @ -No Exacerbation, Progression, or Severe Exacerbation? @ -No Poses a threat to life or bodily function? How? (Chest pain, USA, SC, pneumonia, PE, COPD, DKA, ARF, appy, cholecystitis, CVA, Diverticulitis, Homicidal, Suicidal, threat to staff... and all critical care pts) @ -Threat to pulmonary function (Sammy Marroquin) - Lab Data Lab Results 12/24/24 12/24/24 12/24/24 Range/Units 17:15 17:15 17:15 WBC 10.1 (3.8-10.6) k/uL RBC 5.17 (3.80-5.40) m/uL Hgb 12.9 (11.4-16.0) gm/dL Hct 40.8 (34.0-46.0) % MCV 78.8 L (80.0-100.0) fL MCH 24.9 L (25.0-35.0) pg MCHC 31.6 (31.0-37.0) g/dL RDW 15.6 H (11.5-15.5) % Plt Count 413 (150-450) k/uL MPV 7.4 Neutrophils % 70 % Lymphocytes % 24 % Monocytes % 3 % Eosinophils % 1 % Basophils % 0 % Neutrophils # 7.1 (1.3-7.7) k/uL Lymphocytes # 2.5 (1.0-4.8) k/uL Monocytes # 0.3 (0-1.0) k/uL Eosinophils # 0.1 (0-0.7) k/uL Basophils # 0.0 (0-0.2) k/uL Microcytosis Slight Sodium 141 (137-145) mmol/L Potassium 4.3 (3.5-5.1) mmol/L Chloride 102 (98-107) mmol/L Carbon Dioxide 26 (22-30) mmol/L Anion Gap 13 mmol/L BUN 9 (7-17) mg/dL Creatinine 0.63 (0.52-1.04) mg/dL Est GFR (CKD-EPI)AfAm >90 (>60 ml/min/1.73 sqM) Est GFR (CKD-EPI)NonAf >90 (>60 ml/min/1.73 sqM) Glucose 84 (74-99) mg/dL Calcium 9.6 (8.4-10.2) mg/dL Total Bilirubin 0.6 (0.2-1.3) mg/dL AST 35 (14-36) U/L ALT 49 H (4-34) U/L Alkaline Phosphatase 66 (38-126) U/L Total Protein 7.9 (6.3-8.2) g/dL Albumin 4.5 (3.5-5.0) g/dL Influenza Type A (PCR) Detected A (Not Detectd) Influenza Type B (PCR) Not Detected (Not Detectd) RSV (PCR) Not Detected (Not Detectd) SARS-CoV-2 (PCR) Not Detected (Not Detectd) Disposition <Kim Lane - Last Filed: 12/24/24 16:31> Is patient prescribed a controlled substance at d/c from ED?: No Time of Disposition: 19:13 <Sammy Marroquin - Last Filed: 12/24/24 19:14> Clinical Impression: Influenza Disposition: HOME SELF-CARE Condition: Stable Instructions (If sedation given, give patient instructions): Influenza (ED) Additional Instructions: Continue Tamiflu and antibiotics. Please do follow-up with your primary care physician beginning the week. Prescriptions have been sent to pharmacy. Return for difficulty breathing, uncontrolled fever, uncontrolled vomiting, worsening or changing symptoms or other concerns. Prescriptions: predniSONE [Deltasone] 20 mg PO BID #10 tab Albuterol Nebulized [Ventolin Nebulized] 2.5 mg INHALATION QID PRN #75 ml PRN Reason: Dyspnea Referrals: Amilcar Felix DO [Primary Care Provider] - 1-2 days
--- NOTE | 2024-12-24 16:34 | XR ---
EXAMINATION TYPE: XR chest 2V DATE OF EXAM: 12/24/2024 4:23 PM COMPARISON: None. CLINICAL INDICATION: Female, 29 years old with history of cough, TECHNIQUE: Frontal and lateral views of the chest are obtained. FINDINGS: Increased density at the left lung base which may reflect atelectasis or developing infiltr ate. Correlate clinically. The cardiac silhouette size is within normal limits. The osseous structu res are intact. IMPRESSION: Increased density at the left lung base which may reflect atelectasis or developing infi ltrate. Correlate clinically. [facility], , 12/24/2024 4:31 PM
[2024-12-24 17:26] LABS: Basophils % (A) 0 %; Eosinophils # (A) 0.1 k/uL (0-0.7); Eosinophils % (A) 1 %; HCT 40.8 % (34.0-46.0); HGB 12.9 gm/dL (11.4-16.0); Lymphocytes # (A) 2.5 k/uL (1.0-4.8); Lymphocytes % (A) 24 %; MCH 24.9 pg (25.0-35.0); MCHC 31.6 g/dL (31.0-37.0); MCV 78.8 fL (80.0-100.0); Mean Platelet Volume 7.4; Microcytosis Slight; Monocytes # (A) 0.3 k/uL (0-1.0); Monocytes % (A) 3 %; Neutrophils # (A) 7.1 k/uL (1.3-7.7); Neutrophils % (A) 70 %; Platelet Count 413 k/uL (150-450); RBC 5.17 m/uL (3.80-5.40); RDW 15.6 % (11.5-15.5); WBC 10.1 k/uL (3.8-10.6)
[2024-12-24 17:37] LABS: ALT 49 U/L (4-34); AST 35 U/L (14-36); African American GFR (CKD) >90 (>60 ml/min/1.73 sqM); Albumin 4.5 g/dL (3.5-5.0); Alkaline Phosphatase 66 U/L (38-126); Anion Gap 13 mmol/L; Blood Urea Nitrogen 9 mg/dL (7-17); Calcium 9.6 mg/dL (8.4-10.2); Carbon Dioxide 26 mmol/L (22-30); Chloride 102 mmol/L (98-107); Glucose 84 mg/dL (74-99); Non-African American GFR(CKD) >90 (>60 ml/min/1.73 sqM); Potassium 4.3 mmol/L (3.5-5.1); Sodium 141 mmol/L (137-145); Total Bilirubin 0.6 mg/dL (0.2-1.3); Total Protein 7.9 g/dL (6.3-8.2)
[2024-12-24 18:01] LABS: Influenza A Detected (Not Detectd); Influenza B Not Detected (Not Detectd); RSV Not Detected (Not Detectd)
[2024-12-24 19:32] VITALS: BP 98/62; PULSE 69; RESP 20
[2024-12-24] MEDS: predniSONE 10 MG TAB PO STA (19:47)
[2024-12-24 19:49] VITALS: TEMP 98.2
== END 2024-12-24 19:50 | disposition home or self-care (01) ==
LOC: EC 15:26
DX: J10.1 Influenza due to other identified influenza virus with other respiratory manifestations (principal); Z88.2 Allergy status to sulfonamides; Z91.013 Allergy to seafood
CPT/HCPCS: 36415; 93005; 80053; 85025; 87636; 71046; 99285; J7512